=== PATIENT | female | born 1955 | race Caucasian/White ===

== ENCOUNTER 2017-02-02 10:01 | Outpatient (CLI) | payer OTHER ==
--- NOTE | 2017-02-02 13:03 | Diagnostic Imaging Report ---
Indication: Abdominal pain Technique: Morales-scale and duplex images of the upper abdomen were obtained Comparison: 02/09/2015 Findings: Gallbladder is unremarkable, without stones, wall thickening, nor pericholecystic fluid. Sonographic Valverde's sign is negative. Common bile duct measures mm in diameter. No intrahepatic biliary ductal dilatation. Liver demonstrates normal echogenicity, no focal abnormality. No surface micronodularity noted. Portal vein and hepatic veins are patent. Pancreas is unremarkable. Spleen is unremarkable. Left kidney measures 9.8 cm in length. Right kidney measures 10.7 cm length. Both kidneys demonstrate normal echogenicity. There is no hydronephrosis. No focal abnormality . Non-aneurysmal abdominal aorta . Impression: Negative
== END 2017-02-02 12:01 | disposition home or self-care (01) ==
LOC: ULS 10:01
DX: B19.20 Unspecified viral hepatitis C without hepatic coma (principal); R10.9 Unspecified abdominal pain
CPT/HCPCS: 76700

== ENCOUNTER → 2018-02-02 | Outpatient (CLI) | payer OTHER ==
--- NOTE | 2018-02-02 15:58 | Diagnostic Imaging Report ---
Indication: Abdominal pain, history of hepatitis C Technique: Morales-scale and duplex images of the upper abdomen were obtained. Doppler interrogation of the pancreatic and hepatic vessels Comparison: 02/02/2017 Findings: Gallbladder is unremarkable, without stones, wall thickening, nor pericholecystic fluid. Sonographic Valverde's sign is negative. Common bile duct measures 5 mm in diameter. No intrahepatic biliary ductal dilatation. Liver demonstrates coarsened echogenicity. There is slight hepatic surface nodularity. No focal abnormality Portal vein and hepatic veins are patent. Pancreas is unremarkable. Spleen is unremarkable. Left kidney measures 10 cm in length. Right kidney measures 10.1 cm length. Both kidneys demonstrate normal echogenicity. There is no hydronephrosis. No focal abnormality . Non-aneurysmal abdominal aorta . When compared to the prior exam, the hepatic echogenicity and surface nodularity findings are new Impression: Slight hepatic surface micronodularity, not definitely evident previously, could indicate early cirrhotic change. Coarsened hepatic echogenicity, consistent with hepatocellular disease Negative for gallstones or dilated ducts
== END | disposition home or self-care (01) ==
LOC: ULS 11:11
DX: R10.9 Unspecified abdominal pain (principal); Z86.19 Personal history of other infectious and parasitic diseases
CPT/HCPCS: 76700